=== PATIENT | male | born 1945 | race Caucasian/White ===

== ENCOUNTER → 2017-05-15 11:06 | Outpatient (CLI) | payer MEDICARE, MEDICAID, SELFPAY ==
--- NOTE | 2017-05-15 11:09 | FL_ITS ---
FL barium swallow modified Ordering Physician: Baljit Osborn MD Patient Age: 72 years: Male HISTORY: ITS.REASON: DYSPHAGIA TECHNIQUE: FL barium swallow modified INDICATION: ITS.REASON: DYSPHAGIA dysphagia Aspiration history. On nectar consistency diet currently TECHNIQUE & FINDINGS: Study performed conjunction with these pathologist Simona carlson. 3 minutes 40 secondsseconds fluoroscopy Patient study the lateral projection with video esophagram recording. Various barium consistencies utilized to study swallowing mechanism. . Images demonstrate minor oral and pharyngeal phase impairment Thin barium from cup, and with straw: Demonstrated minimal flash penetration into the laryngeal vestibule but with thin liquids from strong. No aspiration. Projecting from the cup seem improved improved with chin tuck. . [place]on consistency as well as Mechanical soft barium on cereal bar:Good strength the swallowing. No residual This was followed by a thin barium Wash Barium pill was ingested with thin barium wash And readily passed with no restriction or IMPRESSION: Flash penetration with thin liquids drinking from straw. Noted No piero aspiration observed Swallow with other consistencies appear satisfactory and unremarkable Please see review recommendations from speech pathology
--- NOTE | 2017-05-15 11:58 | HMH.SLMBS2 ---
Speech & Language Evaluation Speech/Language Mod Barium Swallow Start: 05/15/17 11:51 Freq: once Status: Complete Protocol: Document 05/15/17 11:51 ROC (Rec: 05/15/17 11:58 ROC [id number]) [facility] [place] Diet Dietary Recommendations Mechanical Soft Thin Liquids Treatment/Strategies Strategy/Precaution Recommend Sitting Upright (90 deg) No Straw Mod Barium Swallow Impressions Summary and Impressions Oral Phase Impression Mild Impairment Oral Phase Summary Mr. Madden was observed to have labored mastication when given large bolus of mechanical soft. Pharyngeal Phase Impression Mild Impairment Pharyngeal Phase Summary Mr. Madden exhibited flash penetration with thin liquids via straw. Speech/Language MBS Assessment/Goals/Plan Assessment Date of Evaluation: 05/15/17 Evaluation Type Initial Certification Assessment/Problems Reported he has occasional choking while eating and drinking. Does Patient Qualify for Service No Qualify/Failure Comment Nursing monitor for clinical signs and symptoms of dysphagia. Contact STUDENT AFFAIRS VICE PRESIDENT/MD for referral/diet modifications. Plan Pt/Guardian verbally ack understanding Yes of dx/prognosis/goals G -code Required Yes G-CODES ST Current Status [id number] ST Current Status Modifier CI-At least 1% but less than 20% impaired, limited or restricted ST Goal Status [id number] ST Goal Status Modifier CI-At least 1% but less than 20% impaired, limited or restricted Mod Barium Swallow Setup Exam Setup Radiologist Sameer Kirkpatrick Level of Consciousness Awake Alert Follows Commands Position (degrees) 90 Comment Needed several cues to sit back in chair. Mod Barium Swallow-Lat View Textures Lateral View Food Presentation Thin Liquid via Cup Thin Liquid via Straw [place] Liquid via Cup Ground Food- Regular Barium Tablet Pudding Mixed Oral Phase Labial Closure No Impairment (WFL)
== END ==
PROVIDERS: Family Provider Internal Medicine Adolescent Medicine; PCP Internal Medicine Adolescent Medicine; Visit Provider Internal Medicine Adolescent Medicine
DX: R13.10 Dysphagia, unspecified (principal)
CPT/HCPCS: 70371; 92611

== ENCOUNTER 2017-06-02 09:20 | Emergency (ER) | payer MEDICARE, MEDICAID, SELFPAY ==
[2017-06-02 08:41] VITALS: BP 142/82; PULSE 76; RESP 16; TEMP 36.9; O2SAT 96; BMI 23.7
--- NOTE | 2017-06-02 08:56 | XR_ITS ---
XR chest AP HISTORY: ITS.REASON: cough ORDERING PHYSICIAN: Frederick Dowell MD PATIENT AGE: 72 years COMPARISON: 03/03/2017 FINDINGS: The cardiomediastinal silhouette and pulmonary vascularity are within normal limits. Patchy density is present in the right mid and lower lung zone consistent with atelectasis and/or infiltrate. IMPRESSION: Right lower lobe atelectasis and/or infiltrate
--- NOTE | 2017-06-02 08:56 | CT_ITS ---
CT head/brain wo con HISTORY: Altered mental status, altered level consciousness, confusion ITS.REASON: altered mental status ORDERING PHYSICIAN: Frederick Dowell MD PATIENT AGE: 72 years COMPARISON: 03/03/2017 TECHNIQUE: Axial images obtained without contrast. Brain and bone windows reviewed. FINDINGS: No midline shift, mass effect, intracranial hemorrhage, hydrocephalus, or extra-axial fluid collection is evident. There is atrophy with periventricular ischemic gliotic change. The calvarium has an unremarkable appearance. No mastoid effusion. Moderate mucosal thickening involves the ethmoid sinuses, left maxillary sinus and sphenoid sinuses with an air-fluid level in the right maxillary sinus.. IMPRESSION: 1. No acute intracranial findings. 2. Sinus disease.
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
--- NOTE | 2017-06-02 09:02 | ED_ITS ---
ED Disposition Clinical Impression: Closed head injury Qualifiers: Encounter type: initial encounter Qualified Code(s): S09.90XA - Unspecified injury of head, initial encounter Altered mental status Qualifiers: Altered mental status type: unspecified Qualified Code(s): R41.82 - Altered mental status, unspecified Disposition: Xfer SNF Condition on Discharge: Fair Instructions: DI for Altered Mental Status Time of Disposition: 11:23 - Critical Care Critical Care Time: No Attestation: On , the high probability of a clinically significant, sudden or life threatening deterioration of the following system(s) required my full and direct attention, intervention and personal management. The time I documented below is in addition to time spent performing reported procedures but includes the following listed in this critical care notation. Medical Decision Making - Medical Records Medical records reviewed: Yes: I reviewed the patient's medical records. Vital Signs: 06/02/17 08:41 Temperature 98.4 F Temperature Source Oral Pulse Rate [Right Brachial] 76 Respiratory Rate 16 Blood Pressure [Right Arm] 142/82 Blood Pressure Mean [Right Arm] 102 Blood Pressure Source [Right Arm] Automatic Cuff Blood Pressure Position [Right Arm] Supine 02 Sat by Pulse Oximetry 96 Oxygen Delivery Method Room Air - Lab Data Lab results reviewed: Yes: I reviewed the patient's lab results. Lab Results 06/02/17 08:55: WBC 7.8, RBC 4.08 L, Hgb 11.5 L, Hct 35.7 L, MCV 87.4, MCH 28.1 , MCHC 32.1, RDW 14.5, Plt Count 236, MPV 7.5, Neut % (Auto) 63.0, Lymph % (Auto ) 28.3, [place] % (Auto) 5.0, Eos % (Auto) 3.1, Baso % (Auto) 0.6, Neut # (Auto) 4.9, Lymph # (Auto) 2.1, [place] # (Auto) 0.4, Eos # (Auto) 0.2, Baso # (Auto) 0.0 06/02/17 08:55: Sodium 148 H, Potassium 4.4, Chloride 112 H, Carbon Dioxide 28, Anion Gap 12.4, BUN 47 H, Creatinine 3.71 H, Estimated Creat Clear 22, Estimated GFR 16 L*, Est GFR ( Amer) 20 L, Glucose 89, Fasting Glucose 89 , Calcium 9.3, Total Bilirubin 0.3, AST 16, ALT 26, Alkaline Phosphatase 90, Total Creatine Kinase 258, CK-MB (CK-2) 1.3, CK-MB (CK-2) Rel Index 0.5, Troponin I < 0.02, Total Protein 7.9, Albumin 3.4, Globulin 4.5 H, Albumin/ Globulin Ratio 0.8 L Result diagrams: 06/02/17 08:55 06/02/17 08:55 Orders (Tests/Meds): ORDERS Category Date Time Status Urinalysis and Microscopic Stat Lab 06/02/17 08:56 Ordered - Radiology Data #1 Image(s): Chest Image Reviewed: Yes I reviewed the patient's radiology results, Yes I reviewed the patient's radiology image, Yes I have reviewed radiologist's interpretation - CT Data CT Scan: Head Time Received: 11:[address] Reviewed: Yes: I have reviewed the patient's CT results, I discussed the CT results w/the radiologist, I have viewed the radiologist's interpretation - Bala Inquiry Pt receiving controlled substance: No Bala was queried for this patient: No Altered Mental Status HPI - General Chief Complaint: Altered Mental Status Stated Complaint: altered mental status Mode of Arrival: EMS Limitations: Altered Mental Status (but 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 He answers questions appropriately and follows commands perfectly) Description of Symptoms (Recalled from ER Triage Doc. by RN): pt began acting different a couple of days ago, nh states couldn't answer demands; and had a ct scheduled for mo
[2017-06-02 09:45] LABS: Hematocrit 35.7 % (42.0-52.0); Hemoglobin 11.5 g/dL (14.1-18.0); Mean Corpuscular Hemoglobin 28.1 pg (27.0-31.2); Mean Corpuscular Volume 87.4 fl (80-94); Red Blood Count 4.08 M/mm3 (4.60-6.20); White Blood Count 7.8 K/mm3 (4.8-10.8)
[2017-06-02 09:46] LABS: Basophils % 0.6 % (0.1-2.0); Eosinophils # 0.2 K/mm3 (0.0-0.4); Eosinophils % 3.1 % (0.1-12.0); Lymphocytes # 2.1 K/mm3 (0.7-4.5); Lymphocytes % 28.3 K/mm3 (10-50); Mean Corpuscular HGB Conc 32.1 g/dL (31.8-35.4); Mean Platelet Volume 7.5 fl (7.4-10.4); Monocytes # 0.4 K/mm3 (0.1-1.0); Neutrophils # 4.9 K/mm3 (1.8-7.8); Platelet Count 236 K/mm3 (142-424); Red Cell Distribution Width 14.5 % (11.5-17.5)
[2017-06-02 10:00] LABS: Alanine Aminotransferase 26 U/L (12-78); Albumin Level 3.4 gm/dL (3.4-5.0); Albumin/Globulin Ratio 0.8 (1.1-1.8); Alkaline Phosphatase 90 U/L (46-116); Anion Gap 12.4 mEq/L (5-15); Aspartate Amino Transferase 16 U/L (15-37); Bilirubin,Total 0.3 mg/dL (0.2-1.0); Blood Urea Nitrogen 47 mg/dL (7-18); CKMB Relative Index 0.5 U/L (0-4.0); Calcium 9.3 mg/dL (8.5-10.1); Carbon Dioxide 28 mmol/L (21.0-32.0); Chloride 112 mmol/L (98-107); Creatine Kinase 258 U/L (39-308); Creatine Kinase MB 1.3 mg/ml (0.0-3.6); Creatinine Clearance Estimated 22 mL/min (0-300); Estimated Glomerular Filt Rate 16 ml/min (>60); GFR (African American) 20 ML/MIN (>60); Globulin 4.5 gm/dl (1.3-3.2); Glucose 89 mg/dL (74-106); Glucose,Fasting 89 mg/dL (60-105); Potassium 4.4 mmoL/L (3.5-5.1); Sodium 148 mmol/L (136-145); Total Protein,Serum 7.9 gm/dL (6.4-8.2); Troponin I < 0.02 ng/ml (0.00-0.06)
[2017-06-02 10:10] LABS: Creatinine,Serum 3.71 mg/dL (0.70-1.30)
[2017-06-02 12:33] VITALS: BP 124/85; PULSE 85; RESP 18; TEMP 36.8
== END 2017-06-02 12:33 ==
PROVIDERS: Emergency Provider General Practice; Family Provider Internal Medicine Adolescent Medicine; PCP Internal Medicine Adolescent Medicine
DX: R41.82 Altered mental status, unspecified (principal); S09.90XA Unspecified injury of head, initial encounter; Z87.820 Personal history of traumatic brain injury
CPT/HCPCS: 70450; 71045; 80053; 82550; 82553; 82947; 84484; 85025; 93005; 93041; 99282

== ENCOUNTER 2017-06-09 16:36 | Emergency (ER) | payer MEDICARE, MEDICAID, SELFPAY ==
[2017-06-09 16:37] VITALS: BP 111/63; PULSE 60; RESP 20; TEMP 36.8; O2SAT 93; BMI 27.8
--- NOTE | 2017-06-09 17:01 | HMH.EDWEAK ---
ED Disposition Clinical Impression: Dehydration, Acute renal failure Disposition: Xfer Short-Term Hosp Condition on Discharge: Fair Referrals: Baljit Osborn MD [Primary Care Provider] - Forms: Transfer Record - ED - Critical Care Critical Care Time: No Attestation: On 06/09/17, the high probability of a clinically significant, sudden or life threatening deterioration of the following system(s) required my full and direct attention, intervention and personal management. The time I documented below is in addition to time spent performing reported procedures but includes the following listed in this critical care notation. Medical Decision Making - Medical Records Medical records reviewed: Yes: I reviewed the patient's medical records. Vital Signs: 06/09/17 16:37 06/09/17 18:02 06/09/17 18:44 Temperature 98.2 F 97.8 F Temperature Source Temporal Artery Scan Temporal Artery Scan Pulse Rate 67 Pulse Rate [Right Brachial] 60 64 Respiratory Rate 20 22 20 Blood Pressure 125/87 Blood Pressure [Right Arm] 111/63 127/85 Blood Pressure Mean [Right Arm] 79 99 Blood Pressure Source Automatic Cuff Blood Pressure Source [Right Arm] Automatic Cuff Automatic Cuff Blood Pressure Position Supine Blood Pressure Position [Right Arm] Sitting Supine 02 Sat by Pulse Oximetry 93 L 96 Oxygen Delivery Method Room Air Room Air Room Air - Lab Data Lab Results 06/09/17 16:52: WBC 6.6, RBC 3.85 L, Hgb 10.3 L, Hct 33.4 L, MCV 86.8, MCH 26.7 L, MCHC 30.7 L, RDW 14.5, Plt Count 254, MPV 9.2, Neut % (Auto) 59.9, Lymph % (Auto) 28.3, [place] % (Auto) 7.0, Eos % (Auto) 4.3, Baso % (Auto) 0.6, Neut # (Auto) 4.0, Lymph # (Auto) 1.9, [place] # (Auto) 0.5, Eos # (Auto) 0.3, Baso # (Auto) 0.0 06/09/17 16:52: Sodium 152 H*, Potassium 4.4, Chloride 118 H, Carbon Dioxide 26, Anion Gap 12.4, BUN 61 H, Creatinine 4.01 H, Estimated Creat Clear 22, Estimated GFR 15 L*, Est GFR ( Amer) 18 L*, Glucose 122 H, Calcium 9.2, Total Bilirubin 0.3, AST 12 L, ALT 35, Alkaline Phosphatase 73, Total Protein 7.6, Albumin 3.1 L, Globulin 4.5 H, Albumin/Globulin Ratio 0.7 L Result diagrams: 06/09/17 16:52 06/09/17 16:52 Orders (Tests/Meds): ED MEDICATIONS Discontinued Medications Generic Name Dose Route Start Last Admin Trade Name Freq PRN Reason Stop Dose Admin Sodium Chloride 1,000 mls @ 500 mls/hr 06/09/17 18:45 06/09/17 18:55 Sod Chlor 0.9% 1000ml Bag IV 07/09/17 18:44 500 mls/hr .Q2H VANESSA Administration Lorazepam 0.5 mg 06/09/17 17:57 06/09/17 18:00 Ativan 2mg/Ml Vial IV 06/09/17 17:58 0.5 mg ONCE ONE Administration Sodium Chloride 2 ml 06/09/17 17:57 Saline Flush 10ml Syringe IV 07/09/17 17:56 NEEDED PRN to Dilute Lorazepam inj - Radiology Data #1 Image(s): Chest Image Reviewed: Yes I reviewed the patient's radiology image Poor inspiratory effort, ?atelectasis on right. Has had atelectasis previously. - ECG Data Tracing #1 I reviewed this ECG and interpreted as documented below: ECG initial impression date: 06/09/17 ECG initial impression time: 17:05 ECG normal with no acute: arrhythmias, ischemia, conduction abnormalities, chamber hypertrophy - Physician Consults Physician Consulted: Dr. Osborn pt PCP Reason -: Pt condition Comment/Response: Transfer to or other facility with HD capacity due to ARF. I spoke first with Asya RN at [facility] who states family had declined palliative care. Code status is not on chart. Additional Consult: appointment coordinator: Dr. Ledezma Time: 18:08 Reason -: Transfer to another facilty - Bala Inquiry Pt receiving controlled substance: No Weakness HPI - General Chief complaint: Weakness Stated complaint: weakness, dehydrated Time Seen by Provider: 06/09/17 17:01 Mode of Arrival: EMS Source of Information: Medical Record Limitations: Pt is not verbally responding (hx of TIA) Description of Symptoms (Recalled fr
[2017-06-09 17:02] LABS: Basophils % 0.6 % (0.1-2.0); Eosinophils # 0.3 K/mm3 (0.0-0.4); Eosinophils % 4.3 % (0.1-12.0); Hematocrit 33.4 % (42.0-52.0); Hemoglobin 10.3 g/dL (14.1-18.0); Lymphocytes # 1.9 K/mm3 (0.7-4.5); Lymphocytes % 28.3 K/mm3 (10-50); Mean Corpuscular HGB Conc 30.7 g/dL (31.8-35.4); Mean Corpuscular Hemoglobin 26.7 pg (27.0-31.2); Mean Corpuscular Volume 86.8 fl (80-94); Mean Platelet Volume 9.2 fl (7.4-10.4); Monocytes # 0.5 K/mm3 (0.1-1.0); Neutrophils % 59.9 % (37.0-80.0); Platelet Count 254 K/mm3 (142-424); Red Blood Count 3.85 M/mm3 (4.60-6.20); Red Cell Distribution Width 14.5 % (11.5-17.5); White Blood Count 6.6 K/mm3 (4.8-10.8)
--- NOTE | 2017-06-09 17:05 | ED_ITS ---
ED Disposition Clinical Impression: Dehydration, Acute renal failure Disposition: Xfer Short-Term Hosp Condition on Discharge: Fair Referrals: Baljit Osborn MD [Primary Care Provider] - Forms: Transfer Record - ED - Critical Care Critical Care Time: No Attestation: On 06/09/17, the high probability of a clinically significant, sudden or life threatening deterioration of the following system(s) required my full and direct attention, intervention and personal management. The time I documented below is in addition to time spent performing reported procedures but includes the following listed in this critical care notation. Medical Decision Making - Medical Records Medical records reviewed: Yes: I reviewed the patient's medical records. Vital Signs: 06/09/17 16:37 06/09/17 18:02 06/09/17 18:44 Temperature 98.2 F 97.8 F Temperature Source Temporal Artery Scan Temporal Artery Scan Pulse Rate 67 Pulse Rate [Right Brachial] 60 64 Respiratory Rate 20 22 20 Blood Pressure 125/87 Blood Pressure [Right Arm] 111/63 127/85 Blood Pressure Mean [Right Arm] 79 99 Blood Pressure Source Automatic Cuff Blood Pressure Source [Right Arm] Automatic Cuff Automatic Cuff Blood Pressure Position Supine Blood Pressure Position [Right Arm] Sitting Supine 02 Sat by Pulse Oximetry 93 L 96 Oxygen Delivery Method Room Air Room Air Room Air - Lab Data Lab Results 06/09/17 16:52: WBC 6.6, RBC 3.85 L, Hgb 10.3 L, Hct 33.4 L, MCV 86.8, MCH 26.7 L, MCHC 30.7 L, RDW 14.5, Plt Count 254, MPV 9.2, Neut % (Auto) 59.9, Lymph % ( Auto) 28.3, [place] % (Auto) 7.0, Eos % (Auto) 4.3, Baso % (Auto) 0.6, Neut # (Auto ) 4.0, Lymph # (Auto) 1.9, [place] # (Auto) 0.5, Eos # (Auto) 0.3, Baso # (Auto) 0.0 06/09/17 16:52: Sodium 152 H*, Potassium 4.4, Chloride 118 H, Carbon Dioxide 26 , Anion Gap 12.4, BUN 61 H, Creatinine 4.01 H, Estimated Creat Clear 22, Estimated GFR 15 L*, Est GFR ( Amer) 18 L*, Glucose 122 H, Calcium 9.2, Total Bilirubin 0.3, AST 12 L, ALT 35, Alkaline Phosphatase 73, Total Protein 7.6, Albumin 3.1 L, Globulin 4.5 H, Albumin/Globulin Ratio 0.7 L Result diagrams: 06/09/17 16:52 06/09/17 16:52 Orders (Tests/Meds): ED MEDICATIONS Discontinued Medications Generic Name Dose Route Start Last Admin Trade Name Freq PRN Reason Stop Dose Admin Sodium Chloride 1,000 mls @ 500 mls/hr 06/09/17 18:45 06/09/17 18:55 Sod Chlor 0.9% 1000ml Bag IV 07/09/17 18:44 500 mls/hr .Q2H VANESSA Administration Lorazepam 0.5 mg 06/09/17 17:57 06/09/17 18:00 Ativan 2mg/Ml Vial IV 06/09/17 17:58 0.5 mg ONCE ONE Administration Sodium Chloride 2 ml 06/09/17 17:57 Saline Flush 10ml Syringe IV 07/09/17 17:56 NEEDED PRN to Dilute Lorazepam inj - Radiology Data #1 Image(s): Chest Image Reviewed: Yes I reviewed the patient's radiology image Poor inspiratory effort, ?atelectasis on right. Has had atelectasis previously. - ECG Data Tracing #1 I reviewed this ECG and interpreted as documented below: ECG initial impression date: 06/09/17 ECG initial impression time: 17:05 ECG normal with no acute: arrhythmias, ischemia, conduction abnormalities, chamber hypertrophy - Physician Consults Physician Consulted: Dr. Osborn pt PCP Reason -: Pt deni
[2017-06-09 17:25] LABS: Alanine Aminotransferase 35 U/L (12-78); Albumin Level 3.1 gm/dL (3.4-5.0); Albumin/Globulin Ratio 0.7 (1.1-1.8); Alkaline Phosphatase 73 U/L (46-116); Anion Gap 12.4 mEq/L (5-15); Aspartate Amino Transferase 12 U/L (15-37); Bilirubin,Total 0.3 mg/dL (0.2-1.0); Blood Urea Nitrogen 61 mg/dL (7-18); Calcium 9.2 mg/dL (8.5-10.1); Carbon Dioxide 26 mmol/L (21.0-32.0); Chloride 118 mmol/L (98-107); Creatinine Clearance Estimated 22 mL/min (0-300); Estimated Glomerular Filt Rate 15 ml/min (>60); GFR (African American) 18 ML/MIN (>60); Globulin 4.5 gm/dl (1.3-3.2); Glucose 122 mg/dL (74-106); Potassium 4.4 mmoL/L (3.5-5.1); Total Protein,Serum 7.6 gm/dL (6.4-8.2)
[2017-06-09 17:27] LABS: Creatinine,Serum 4.01 mg/dL (0.70-1.30); Sodium 152 mmol/L (136-145)
--- NOTE | 2017-06-09 17:27 | PC.NURSE ---
critical result of sodium, ER notified
--- NOTE | 2017-06-09 17:52 | PC.NURSE ---
SHOSHANA MEJIA speaking with nursing staff, CRISTY, at [email or web address].
--- NOTE | 2017-06-09 18:00 | PC.NURSE ---
SHOSHANA MEJIA spoke with Dr. Osborn
[2017-06-09 18:02] VITALS: BP 127/85; PULSE 64; RESP 22; O2SAT 96
--- NOTE | 2017-06-09 18:03 | XR_ITS ---
XR chest portable COMPARISON: AP upright chest on stretcher 06/02/2017 HISTORY: Follow-up suspected pneumonia versus atelectasis TECHNIQUE: Portable semiupright chest FINDINGS: 2 films were obtained both showing a poor inspiration. This results in crowding of vascular markings but I do suspect a pneumonic infiltrate in right perihilar region and right lower lobe basically stable and unchanged from the previous study. Some the findings could be due to chronic post inflammatory scarring. The right upper lung field and left lung field are clear. Cardiac size is borderline. Again noted is a calcified left hilar node. There is prominent degenerative change right shoulder. IMPRESSION: Persistent right perihilar right lower lobe bronchopneumonia possibly superimposed upon underlying scarring, very little if any improvement from the previous study.
--- NOTE | 2017-06-09 18:05 | PC.NURSE ---
Contacting [facility] per ER MD request, ER MD speaking with head start coordinator
--- NOTE | 2017-06-09 18:08 | PC.NURSE ---
admissions coordinator accepted pt to ER per Dr. Juarez
--- NOTE | 2017-06-09 18:25 | PC.NURSE ---
Contacted pt sister Nicole to obtain consent for transfer of pt to ER as arranged per ER MD. Pt sister nicole gave consent for transfer and ambulance transport of pt, GIORGIO Vidal verified consent with pt sister.
--- NOTE | 2017-06-09 18:30 | PC.NURSE ---
report called to CEASAR Alcala at ER
[2017-06-09 18:44] VITALS: BP 125/87; PULSE 67; RESP 20; TEMP 36.6; O2SAT 96
== END 2017-06-09 18:44 | disposition short-term general hospital (02) ==
PROVIDERS: Emergency Provider Emergency Medicine; Family Provider Internal Medicine Adolescent Medicine; PCP Internal Medicine Adolescent Medicine
DX: E86.0 Dehydration (principal); N17.9 Acute kidney failure, unspecified; R41.82 Altered mental status, unspecified; Z79.82 Long term (current) use of aspirin; F80.1 Expressive language disorder; Z79.899 Other long term (current) drug therapy
CPT/HCPCS: 36415; 71045; 80053; 85025; 93005; 93041; 96365; 96375; 99284